=== PATIENT | female | born 1995 | race Caucasian/White ===

== ENCOUNTER 2020-08-31 08:15 | Inpatient (IN) | payer OTHER ==
[~2020-08-31] VITALS: Ht 152.4 cm; Wt 54.4 kg
[~2020-08-31 08:15] MED LIST: FLAGYL500 MG PO; NORCO 5-325 TA1 EACH PO; ZITHROMAX500 MG PO
[2020-08-31 08:22] VITALS: BP 113/71
[2020-08-31 11:55] LABS: BASO % 0.2 % (0.0-1.0); EOS # 0.1 10*3/uL (0.0-0.4); EOS % 2.9 % (1.0-4.0); HEMATOCRIT 30.5 % (37.0-47.0); LYMPH # 1.7 10*3/uL (1.3-4.4); LYMPH % 42.1 % (27.0-41.0); MEAN CELL VOLUME 81.1 fl (81.0-99.0); MEAN CORPUSCULAR HGB CONC 30.8 g/dl (33.0-37.0); MEAN PLATELET VOLUME 8.7 fl (9.6-12.3); MONO # 0.3 10*3/uL (0.1-1.0); MONO % 8.3 % (3.0-9.0); NEUT # 1.9 10*3/uL (2.3-7.9); NEUT % 46.3 % (47.0-73.0); PLATELET COUNT AUTOMATED 249 10*3/uL (130-400); RED BLOOD COUNT 3.76 10*6/uL (4.10-5.10); RED CELL DISTRI WIDTH 13.3 % (0-14.5); WHITE BLOOD COUNT 4.1 10*3/uL (4.8-10.8)
[2020-08-31 12:01] LABS: INTERNATIONAL NORM RATIO 0.9 (2.0-3.5)
[2020-08-31 12:05] LABS: ALBUMIN 2.4 gm/dl (3.1-4.5); ALKALINE PHOSPHATASE 127 U/L (45-117); BUN 16 mg/dl (7-24); CHLORIDE 108 mmol/L (98-107); CREATININE 0.63 mg/dL (0.55-1.02); SGOT/AST 23 IU/L (3-35); SGPT/ALT 23 U/L (12-78); SODIUM 142 mmol/L (136-145); TOTAL PROTEIN 6.7 gm/dL (6.4-8.2)
[2020-08-31 12:06] LABS: BILIRUBIN Negative (Negative); BLOOD 1+ (Negative); CLARITY Cloudy (Clear); COLOR Yellow (Yellow); GLUCOSE Negative (Negative); KETONE Negative (Negative); LEUKO ESTERASE 2+ (Negative); NITRITE Negative (Negative); SPECIFIC GRAVITY >= 1.030 (1.001-1.030)
[2020-08-31 12:10] LABS: ETHYL ALCOHOL < 3.0 mg/dl (<3)
[2020-08-31 12:15] LABS: URINE AMPHETAMINES < 1000 (1000ng/ml); URINE BARBITURATES < 200 (200ng/ml); URINE BENZODIAZEPINES < 200 (200ng/ml); URINE CANNABINOIDS (THC) < 50 (50ng/ml); URINE COCAINE < 300 (300ng/ml); URINE METHADONE < 300 (300ng/ml); URINE OPIATES < 300 (300ng/ml)
[2020-08-31 12:16] LABS: URINE PHENCYCLIDINE < 25 (25ng/ml)
[2020-08-31 12:46] LABS: BACTERIA 2+; WBC 51-100 wbc/hpf (0-5)
--- NOTE | 2020-08-31 12:46 | NUR ---
PROVIDED LUNCH TRAY
[2020-08-31] MEDS ORDERED: PRENATAL VITAM1 EAC4 PO (13:26)
--- NOTE | 2020-08-31 15:06 | NUR ---
PT HAS NO COMPLAINTS, STATES "DROWSY".
--- NOTE | 2020-08-31 15:29 | NUR ---
Time: 1524 A 25 year old FEMALE admitted to [facility] under services of LUCRECIA REED DO. Pt. arrived via WHEELCHAIR from ER. Chief complaint: OPIATE WITHDRAWAL. [address]
[2020-08-31 16:00] VITALS: BP 121/95
--- NOTE | 2020-08-31 16:34 | NUR ---
PATIENT WANTS NEW VISION SERVICES. [facility] STAFF WILL FOLLOW UP WITH PATIENT WITH REFERRAL OPTIONS FOR HER AFTERCARE PLAN. HARRIS RIOJAS B.A. WAREHOUSE ORDER FILLER
[2020-08-31 17:15] VITALS: BP 128/74
--- NOTE | 2020-08-31 17:15 | NUR ---
ARRIVED TO FLOOR VIA W/C WITH NURSE. TOOK BELONGINGS TO SECURITY. TRACK CARR ALL OVER LEGS. MULTIPLE TATTOOS. VSS.
[2020-08-31 17:23] VITALS: BP 139/73
[2020-08-31 20:00] VITALS: BP 119/67
--- NOTE | 2020-08-31 20:35 | NUR ---
Patient displaying withdrawal symptoms, including: irritability, anxiousness, restlessness and agitation. Scheduled/PRN medications provided, SEE EMAR. Will continue to monitor medication effectiveness.
--- NOTE | 2020-08-31 21:15 | NUR ---
Patient resting. Responding to scheduled medications with fewer complaints of pain and anxiety.
--- NOTE | 2020-08-31 22:50 | NUR ---
24 HR chart check completed.
[2020-09-01] VITALS: BP 112/73
--- NOTE | 2020-09-01 | NUR ---
SLEEPING. NO ACUTE DISTRESS NOTED. RESPIRATIONS EASY. VSS. CALL LIGHT WITHIN REACH.
--- NOTE | 2020-09-01 02:40 | NUR ---
CONTINUES TO SLEEP
[2020-09-01 04:00] VITALS: BP 110/62
--- NOTE | 2020-09-01 05:45 | NUR ---
Patient resting. Responding to scheduled medications with fewer complaints of pain and anxiety.
--- NOTE | 2020-09-01 06:50 | NUR ---
SLEPT THROUGHOUT NIGHT WITH NO DISTRESS NOTED. RESPIRATIONS EASY. CALL LIGHT WITHIN REACH.
--- NOTE | 2020-09-01 07:30 | NUR ---
TOOK OVER CARE OF PT. PT RESTING IN BED. RESPIRATIONS EASY AND UNLABORED. CALL LIGHT IN REACH.
[2020-09-01 08:00] VITALS: BP 111/72
--- NOTE | 2020-09-01 09:00 | NUR ---
PT GIVEN ZOFRAN, ROBAXIN, AND REQUIP FOR C/O NAUSEA, MUSCLE ACHES, AND RESTLESS LEGS. WILL MONITOR FOR EFFECTIVENESS. CALL LIGHT IN REACH.
--- NOTE | 2020-09-01 10:00 | NUR ---
ZOFRAN, ROBAXIN, AND REQUIP EFFECTIVE AT THIS TIME.
--- NOTE | 2020-09-01 11:40 | NUR ---
[facility] STAFF IN TO SEE PATIENT. PATIENT IS STILL UNSURE OF HER AFTERCARE PLAN. PATIENT WANTED [facility] STAFF TO COME BACK LATER. [facility] STAFF WILL FOLLOW BACK UP WITH PATIENT. HARRIS RIOJAS B.A. STEEL CHECKER
[2020-09-01 12:00] VITALS: BP 127/70
--- NOTE | 2020-09-01 15:00 | NUR ---
PT SLEEPING IN BED, NO S/S OF DISTRESS. RESPIRATIONS UNLABORED. CALL LIGHT IN REACH.
[2020-09-01 16:00] VITALS: BP 123/69
--- NOTE | 2020-09-01 18:19 | NUR ---
PT GIVEN ROBAXIN AND LIBRIUM FOR C/O MUSCLE ACHES AND ANXIETY. WILL MONIOR FOR EFFECTIVENESS. CALL LIGHT IN REACH.
--- NOTE | 2020-09-01 19:30 | NUR ---
24 HR chart check completed.
[2020-09-01 20:00] VITALS: BP 99/55
--- NOTE | 2020-09-01 20:27 | NUR ---
PT IS LYING IN BED WITH COMPLAINTS OF TIREDNESS AND RESTLESS LEG. STATES SHE ONLY WANTS TO SLEEP. SHE STATES THAT LIBRIUM HELPS HER SLEEP. I NOTIFIED HER THAT IT WAS NOT ABLE TO BE GIVEN UNTIL 0019. LUNGS WERE CLEAR, BOWEL SOUNDS WER PRESENT, AND PATIENT HAD NO COMPLAINTS OF PAIN. PATIENT STATED THAT SHE WOULD LIKE HER TRAZADONE AND REQUIP TO BE GIVEN LATER. WILL CONTINUE TO MONITOR PATIENT.
--- NOTE | 2020-09-01 21:47 | NUR ---
PRN REQUIP AND TRAZADONE WERE GIVEN FOR RESTLESS LEG AND INSOMNIA. WILL REASSESS EFFECTIVENESS.
[2020-09-02] VITALS: BP 100/57
[2020-09-02 08:00] VITALS: BP 103/61
--- NOTE | 2020-09-02 10:32 | NUR ---
PT GIVEN REQUIP AND ROBAXIN AND FOR C/O RESTLESS LEGS AND MUSCLE ACHES. WILL MONITOR FOR EFFECTIVENESS.
--- NOTE | 2020-09-02 11:32 | NUR ---
REQUIP AND ROBAXIN APPEARS TO BE EFFECTIVE.
--- NOTE | 2020-09-02 11:46 | NUR ---
[facility] STAFF IN TO SEE PATIENT. PATIENT WANTS TO FOLLOW UP WITH ON DEMAND FOR HER AFTERCARE PLAN. HARRIS RIOJAS B.A. [employer] TREATMENT SPECIALIST
[2020-09-02 12:00] VITALS: BP 115/69
--- NOTE | 2020-09-02 12:07 | NUR ---
PT GIVEN LIBRIUM FOR C/O ANXIETY. WILL MONITOR FOR EFFECTIVENESS. CALL LIGHT IN REACH.
--- NOTE | 2020-09-02 13:07 | NUR ---
LIBRIUM APPEARS TO BE EFFECTIVE. PT SLEEPING.
--- NOTE | 2020-09-02 17:00 | NUR ---
PT MORE AWAKE IN ROOM AT THIS TIME. PT IS PLEASANT AND TALKATIVE WITH NURSE. PT STATES THAT SHE WOULD LIKE TO TRY A VISTARIL FOR ANXIETY. WILL MEDICATE PT.
--- NOTE | 2020-09-02 17:21 | NUR ---
PT GIVEN VISTARIL FOR C/O ANXIETY. WILL MONITOR FOR EFFECTIVENESS. CALL LIGHT IN REACH.
[2020-09-02 20:00] VITALS: BP 115/75
--- NOTE | 2020-09-02 21:49 | NUR ---
PT RESTING IN BED. RESP-EASY AND REGULAR. REQUESTING TRAZADONE FOR SLEEP AND LIBRIUM FOR ANXIETY. SEE EMAR. CALL LIGHT IN REACH.
--- NOTE | 2020-09-02 22:45 | NUR ---
PT RESTING IN BED WITH EYES CLOSED. AWAKENS EASILY. STATES MEDICATION HELPS. NO NEW C/O. CALL LIGHT IN REACH.
[2020-09-03] VITALS: BP 102/64
--- NOTE | 2020-09-03 00:20 | NUR ---
PT RESTING IN BED. RESP-EASY AND REGULAR.
--- NOTE | 2020-09-03 00:23 | NUR ---
PT REQUESTING ANOTHER SLEEPING PILL. MEDICATED WITH TRAZADONE PER PRN ORDER, SEE EMAR. CALL LIGHT IN REACH.
--- NOTE | 2020-09-03 03:15 | NUR ---
SLEEPING IN BED, AWAKENS EASILY. TOLERATED ROUTINE SUBUTEX PO PER ORDER FOR WITHDRAWAL SYMPTOMS. CALL LIGHT IN REACH.
--- NOTE | 2020-09-03 05:10 | NUR ---
PT AMBULATORY TO DESK UNABLE TO TURN LIGHT OFF, ASSISTED PT AND RESTING BACK IN BED AT THIS TIME. NO C/O. CALL LIGHT IN REACH.
[2020-09-03 05:48] LABS: CREATININE 0.67 mg/dL (0.55-1.02)
[2020-09-03 05:51] LABS: BASO % 0.6 % (0.0-1.0); EOS # 0.1 10*3/uL (0.0-0.4); EOS % 1.9 % (1.0-4.0); HEMATOCRIT 35.4 % (37.0-47.0); LYMPH # 1.9 10*3/uL (1.3-4.4); LYMPH % 41.2 % (27.0-41.0); MEAN CELL VOLUME 79.2 fl (81.0-99.0); MEAN CORPUSCULAR HGB 24.8 pg (27.0-31.0); MEAN CORPUSCULAR HGB CONC 31.4 g/dl (33.0-37.0); MEAN PLATELET VOLUME 9.4 fl (9.6-12.3); MONO # 0.4 10*3/uL (0.1-1.0); MONO % 8.3 % (3.0-9.0); NEUT # 2.2 10*3/uL (2.3-7.9); NEUT % 47.8 % (47.0-73.0); PLATELET COUNT AUTOMATED 296 10*3/uL (130-400); RED BLOOD COUNT 4.47 10*6/uL (4.10-5.10); RED CELL DISTRI WIDTH 13.6 % (0-14.5); WHITE BLOOD COUNT 4.7 10*3/uL (4.8-10.8)
[2020-09-03 08:00] VITALS: BP 97/63
[2020-09-03] MEDS ORDERED: ATARAX,VISTARIL50 MG PO (10:16)
--- NOTE | 2020-09-03 10:36 | NUR ---
[facility] Discharge instructions reviewed with patient/family. Patient receptive and verbalizes understanding. Follow-up care arranged. Written instructions given to patient/family. EVIN LINN
== END 2020-09-03 10:35 | disposition home or self-care (01) | DRG 773 ==
LOC: ED 08:15 → 5E 09:19 → EDHOLD 09:19 → 5E 16:49
PROVIDERS: Registered Nurse; ADMIT Internal Medicine; ATTEND Internal Medicine
DX: F11.23 Opioid dependence with withdrawal (principal); E43 Unspecified severe protein-calorie malnutrition; R73.9 Hyperglycemia, unspecified; E83.51 Hypocalcemia; D50.9 Iron deficiency anemia, unspecified; G25.81 Restless legs syndrome; Z90.49 Acquired absence of other specified parts of digestive tract; Z68.23 Body mass index [BMI] 23.0-23.9, adult